=== PATIENT | female | born 1970 | race Caucasian/White ===

== ENCOUNTER 2023-05-15 09:52 | Emergency (ER) | payer OTHER ==
[~2023-05-15] VITALS: Ht 170.2 cm; Wt 59.0 kg
[2023-05-15 10:07] VITALS: BP 160/90
[2023-05-15] MEDS ORDERED: QUET100 PO (10:26)
== END 2023-05-15 10:30 | disposition home or self-care (01) ==
LOC: ER 09:52
DX: B88.9 Infestation, unspecified (principal)
CPT/HCPCS: 99282